=== PATIENT | male | born 1955 ===

== ENCOUNTER 2016-12-13 17:07 | Inpatient (IN) | payer BC ==
--- NOTE | ~2016-12-13 | HP ---
History And Physical [address] [place]. [address] NAME: DAVID MÉNDEZ : 59 STATUS : ADM IN [facility]#: [id number] AGE: 61 ADM/REG DATE : 12/13/16 MR#: [id number] REPORT SERV DATE: 12/13/16 DICTATED BY: KUN DOWD DATE: 12/13/16 REPORT STATUS : Draft TRANSCRIBED BY: MODL DATE: 12/13/16 DATE OF ADMISSION: 12/13/2016 CHIEF COMPLAINT: Shortness of breath and chest pain. BRIEF HISTORY OF PRESENT ILLNESS: The patient is a 61-year-old white male, who has chronic multiple myeloma, under the care of Dr. Wellington Mcgee, presented at [facility] emergency room with chest pain, shortness of breath, generalized aching, had a temperature of 100+. He was noted also to have some palpitations, wheezing, lower extremity edema, complaint of left leg pain, got bitten by a dog about two days ago on the right side, but that leg has been okay. He also had some body aches. He denied any weight loss. He denied any hemoptysis. He has had some night sweats as well. He also noted some chills. He was thought to be septic because of the chemotherapy, so he has been referred to the Hospitalist Service for further treatment and evaluation. When I got to the patient after he got transferred, this patient denied any nausea or vomiting. He just complained of his chest pain, his shortness of breath. However, he is saturating 100% on 2 L of O2. His main other complaint was his left lower extremity significant pain, burning, and there was some swelling. He denied any other problems or complaints. He is a very poor historian. REVIEW OF SYSTEMS: Rest of the 10-point review of systems was negative. PAST MEDICAL HISTORY: Significant for multiple myeloma, hypertension, history of congestive heart failure; coronary artery disease, status post aortic valve repair. He also has COPD. PAST SURGICAL HISTORY: Significant for aortic valve replacement, open heart surgery, and decortication of the lung postoperatively. ALLERGIES: NO KNOWN DRUG ALLERGIES. HOME MEDICATIONS: Unavailable at this time. It will be reviewed when available from Pharmacy. SOCIAL HISTORY: The patient lives at home. Self-sufficient in most ADLs. He admits to smoking two packs per day for 30+ years. Admits to drinking six beers every day since he was a child. Denies any illicit substances. FAMILY HISTORY: Significant for diabetes. No heart disease or cancer in the family. PHYSICAL EXAMINATION: GENERAL: White male, lying on the bed, appears to be in [id number]-hcmahmze respiratory distress. He is awake and alert. He is oriented. Once again, very poor historian. VITAL SIGNS: Blood pressure 174/80, temp of 99.8, heart rate 84, respiratory rate about 20. HEENT: Head is normocephalic, atraumatic. Pupils are equal, round, and reactive to light. Extraocular muscles are intact. Sclerae are anicteric. Conjunctivae normal. Oropharynx without lesion. Tongue protrusion midline. Uvula midline. History And Physical [address] [place]. [address] NAME: DAVID MÉNDEZ : 59 STATUS : ADM IN [facility]#: [id number] AGE: 61 ADM/REG DATE : 12/13/16 MR#: [id number] REPORT SERV DATE: 12/13/16 DICTATED BY: KUN DOWD DATE: 12/13/16 REPORT STATUS : Draft TRANSCRIBED BY: EDI DATE: 12/13/16 NECK: Supple. No jugular venous distention. No carotid bruits or thyromegaly is appreciated. No lymphadenopathy in the neck is palpable. HEART: Regular rate rhythm. No murmurs, rubs, or gallops are heard. Occasional PVC. PMI nondisplaced. LUNGS: Diffuse bilateral inspiratory and expiratory wheezing. No evidence of any focal consolidation. No rales or crackles are noted. There are few rhonchi that are scattered in all lung garrido. ABDOMEN: Scaphoid, soft, nontender. Good bowel sounds. No rebound or guarding. No organomegaly. EXTREMITIES: Without cyanosis or clubbing. The left lower extremity is swollen around the ankles, very hot to touch, eliciting pain. There is no pain on flexion and Homans sign is negative. Femoral pulses are equal and symmetrical. NEUROLOGIC: Seems to be grossly intact. LABORATORY DATA: X-ray of the of the left ankle, left ankle soft tissue swelling with a small effusion, but otherwise unremarkable. PT/INR normal. Lactate level of 2.4. Troponin of 0.01. Repeat lactic acid level of 1.2. White count is 11.2, hemoglobin of 11.5, hematocrit of 35, platelet count is 224,000. No left shift. Sodium of 123, potassium of 3.9, chloride is 88, bicarb is 23, glucose of 88, BUN of 12, creatinine 1.1. Liver function studies are all normal. Albumin of 3.2. Magnesium is 1.9. Chest x-ray, no acute process. EKG, sinus tachycardia, no acute ST-T wave changes. IMPRESSION: 1. Sepsis, present on admission. 2. Left lower extremity cellulitis. 3. Acute exacerbation of chronic obstructive pulmonary disease. 4. Acute hypoxic respiratory failure. 5. Multiple myeloma. 6. Coronary artery disease. 7. Hypertension. 8. Aortic valve replacement. 9. Alcoholism. PLAN: The patient will be admitted. IV fluids will be given. IV steroids will be started. IV antibiotics will be given, especially, Ancef, as I think this may be a Staph or a Strep infection, and we will monitor his blood and we will evaluate for other sources of infection. We will start the patient on thiamine, folate, and Ativan. We will give him aggressive nebulizing treatments. Repeat labs again in the morning. We will obtain blood cultures from [facility] as he has already gotten blood cultures done there and received Zosyn and vancomycin. This patient remains a full code at this time. History And Physical [address] [address] NAME: DAVID MÉNDEZ : 59 STATUS : ADM IN [facility]#: [id number] AGE: 61 ADM/REG DATE : 12/13/16 MR#: [id number] REPORT SERV DATE: 12/13/16 DICTATED BY: KUN DOWD DATE: 12/13/16 REPORT STATUS : Draft TRANSCRIBED BY: MODKosta DATE: 12/13/16 ANTHONY/EDI Kun Dowd M.D. / [id number] CC: Kun Nile, Jeff Barnes M.D.
--- NOTE | ~2016-12-13 | DS ---
Discharge Summary [address] [facility] [place]. [address] NAME: DAVID MÉNDEZ : 59 STATUS : DIS IN PAT#: [id number] AGE: 61 ADM/REG DATE : 12/13/16 MR#: [id number] REPORT SERV DATE: 12/18/16 DICTATED BY: GLORIA PITTMAN DATE: 12/17/16 REPORT STATUS : Draft TRANSCRIBED BY: MODL DATE: 12/17/16 ADMISSION DATE: 12/13/2016 DISCHARGE DATE: 12/17/2016 REASON FOR ADMISSION: Shortness of breath. HISTORY OF PRESENT ILLNESS: Please refer to Dr. Dowd's history and physical dated 12/13/2016 for complete details regarding the patient's admission. In brief, the patient was admitted to the Hospitalist Service for management of his acute on chronic COPD exacerbation, hypoxic respiratory failure, and sepsis secondary to lower extremity cellulitis. HOSPITAL COURSE: The patient had an uncomplicated hospital course. Dr. Dowd started the patient on steroids, nebulizers, and inhalers for COPD exacerbation along with IV Ancef for treatment of his sepsis secondary to cellulitis. Cellulitis had significantly improved. He has had about four to five days worth of IV antibiotics and has mostly resolved. Dr. Dowd had ordered a MRI of his foot, which was done on 12/13/2016, but dictation got delayed until 12/15/2016, which showed a nondisplaced acute fracture of the anterior medial talus extending to the talonavicular joint with associated small talonavicular joint effusion. There is a partial tear of the posterior tibialis tendon and its navicular insertion site. There is a mild sprain of the posterior tibiotalar fibers of the deltoid ligament. There was some moderate cellulitis, soft tissue swelling. Given these findings, Dr. Aguirre was consulted and recommended doing weightbearing at all times with the use of a boot. A boot was ordered and has now been delivered. The patient's oxygenation continued to go up and down. He does have good air movement on lung exam with some bibasilar crackles. He was given some Lasix IV, which has helped, but he is still mildly hypoxic especially with exertion. He does qualify for home oxygen. He does carry a diagnosis of COPD. In fact, he was treated for an acute on chronic COPD exacerbation, which is now resolving. We will obtain an echocardiogram today, but otherwise, the patient is requesting to go home today, so he will be discharged to home in stable condition to follow up with Dr. Mcgee in clinic tomorrow for resumption of chemotherapy. DISCHARGE DIAGNOSES: Sepsis secondary to left lower extremity cellulitis, markedly improved; acute on chronic chronic obstructive pulmonary disease exacerbation, resolving; acute hypoxic respiratory failure, likely secondary to chronic obstructive pulmonary disease, stable; multiple myeloma, followed by Dr. Mcgee; coronary artery disease; hypertension; aortic valve replacement; history of alcoholism; and acute talar fracture. PROCEDURES: Include echocardiogram, MRI, and consultation with Dr. Aguirre. DISCHARGE MEDICATIONS: Include acyclovir 400 mg twice a day for maintenance therapy; amlodipine 10 mg daily; Lasix 20 mg daily; metoprolol tartrate 25 mg twice a day; Protonix 40 mg daily; Decadron 20 mg on the day before chemotherapy; Flonase daily; [place] 10/325 mg p.r.n., #20 given; Phenergan p.r.n. nausea; Lyrica 100 mg twice a day p.r.n. pain; Zofran p.r.n. nausea; Bactrim one tablet once a day on Saturday for maintenance therapy; Ceftin 500 mg twice a day for three more days; and Dulera two puffs twice a day. Discharge Summary [address] [address] NAME: DAVID MÉNDEZ : 59 STATUS : DIS IN PAT#: [id number] AGE: 61 ADM/REG DATE : 12/13/16 MR#: [id number] REPORT SERV DATE: 12/18/16 DICTATED BY: GLORIA PITTMAN DATE: 12/17/16 REPORT STATUS : Draft TRANSCRIBED BY: EDI DATE: 12/17/16 Spending over 30 minutes discharge planning. DICTATED BY: MD LISSETTE Jaime/EDI Gloria Pittman MD / [id number] CC: Gloria A. MD Patricia Pittman M.D. Wellington Mcgee M.D.
--- NOTE | ~2016-12-13 | CN ---
Consultation Report [facility] [address] [place]. [address] NAME: DAVID MÉNDEZ : 59 STATUS : ADM IN PAT#: [id number] AGE: 61 ADM/REG DATE : 12/13/16 MR#: [id number] REPORT SERV DATE: 12/16/16 DICTATED BY: FRANCISCO LINCOLN DATE: 12/16/16 REPORT STATUS : Draft TRANSCRIBED BY: MODL DATE: 12/16/16 CONSULTATION DATE OF CONSULTATION: 12/16/2016 CHIEF COMPLAINT: Left leg pain. HISTORY OF PRESENT ILLNESS: The patient is a 61-year-old gentleman who has history of multiple myeloma, who has been treated by the Hem-Onc team currently under the care of Dr. Mcgee. He came to the emergency room with temperature, shortness of breath. He was transferred to [facility] for possibility of sepsis with a left lower extremity pain. He was thought to have cellulitis in left lower extremity and started on antibiotics on admission. He is a very poor historian. He does not remember any kind of injury to the leg. He can tell me very little about his nature of the pain and history of the pain. He says the pain is mostly on the medial side of his foot and he has really no pain at rest today, but he has some pain with palpation of the leg. PAST MEDICAL HISTORY: Multiple myeloma, hypertension, congestive heart failure, coronary artery disease, COPD. PAST SURGICAL HISTORY: Including an aortic valve repair, open heart surgery. ALLERGIES: NO KNOWN DRUG ALLERGIES. MEDICATIONS: Decadron, Pepcid, Flonase, Miller, Lopressor, Zofran, Percocet, Protonix, Lyrica, Phenergan, Bactrim, Lasix, Prilosec. He also gets chemotherapy, administered by Oncology. SOCIAL HISTORY: Lives at home. Smokes two packs, 30 years. Drinks six beers every day. FAMILY HISTORY: Noncontributory. PHYSICAL EXAMINATION: GENERAL: Well-developed, well-nourished male, appears chronically ill, in no acute distress. HEENT: Normocephalic, atraumatic. RESPIRATORY: Nonlabored respirations. Equal chest rise bilaterally. EXTREMITIES: He has erythema on both extremities, worse on the left, above his ankle and minimal swelling. MUSCULOSKELETAL: Tenderness to palpation around his medial ankle specifically over the medial talus, medial malleolus, and lateral malleolus. He has some mild pain with range of motion. Erythema around the foot and also above the ankle and mid lower leg. SKIN: Erythema, no lacerations or lesions, left lower extremity. PSYCH: Appropriate mood and affect. Consultation Report [address] [place]. [address] NAME: DAVID MÉNDEZ : 59 STATUS : ADM IN [facility]#: [id number] AGE: 61 ADM/REG DATE : 12/13/16 MR#: [id number] REPORT SERV DATE: 12/16/16 DICTATED BY: FRANCISCO LINCOLN DATE: 12/16/16 REPORT STATUS : Draft TRANSCRIBED BY: EDI DATE: 12/16/16 NEURO: Alert and oriented. DIAGNOSTIC DATA: X-rays, none. MRI shows a sprain of his posterior tibial tendon as well as posterior deltoid fibers. He had nondisplaced fracture that appeared to be anterior medial talus, very small fracture, no displacement, small joint effusion. He has no fluid collections noted. swelling around the ankle and foot. Also, lateral bone bruise on his lateral malleolus, lateral surface. ASSESSMENT: Acute fracture, small fracture, medial talus, nondisplaced, cellulitis. PLAN: We will continue with antibiotics per the Primary Team. We will give him a boot, have Physical Therapy work with him now for partial touchdown weightbearing. Follow him up in two to three weeks. No acute surgery needed. ROSE MARY/EDI Francisco Lincoln MD / [id number] CC: MD Patricia Jaime M.D.
[2016-12-13] MEDS ORDERED: ZOFRAN ODT4 MG PO (17:20)
[2016-12-13] MEDS ORDERED: FLONASE NAS ×2 (17:21→20:16)
[2016-12-13] MEDS ORDERED: LOP25 PO ×2 (17:21→20:17)
[2016-12-13] MEDS ORDERED: PEP20 PO ×2 (17:21→20:16)
[2016-12-13] MEDS ORDERED: L20 PO ×2 (17:22→20:26)
[2016-12-13] MEDS ORDERED: NORCO1 TA1 PO (17:23)
[2016-12-13] MEDS ORDERED: PROTONIX PO ×2 (17:24→20:19)
[2016-12-13] MEDS ORDERED: LYRICA50 PO (17:24)
[2016-12-13] MEDS ORDERED: ZOVIRAX400 MG PO ×2 (17:25→20:14)
[2016-12-13] MEDS ORDERED: BACTRIM DS1 TAB PO ×2 (17:26→20:23)
[2016-12-13] MEDS ORDERED: DEX4 PO ×2 (17:27→20:15)
[2016-12-13] MEDS ORDERED: PR25 PO ×2 (17:33→20:22)
[2016-12-13] MEDS ORDERED: POMALYST4 MG PO (17:39)
[2016-12-13 19:05] LABS: PHOSPHORUS, SERUM 3.5 MG/DL (2.5-4.5)
[2016-12-13 19:33] LABS: PROCALCITONIN 1.22 ng/mL (<0.5)
[2016-12-13] MEDS ORDERED: NORCO1 TAB PO (20:17)
[2016-12-13] MEDS ORDERED: PERCOCET 10/3251 TAB PO (20:18)
[2016-12-13] MEDS ORDERED: ZOFRAN8 PO (20:18)
[2016-12-13] MEDS ORDERED: LYRICA100 MG PO (20:21)
[2016-12-13] MEDS ORDERED: CHEMOTHERAPY IV (20:24)
[2016-12-13] MEDS ORDERED: PRILO PO (20:25)
[2016-12-14 06:01] LABS: BASOPHILS 0 %; EOSINOPHILS 0 %; HEMATOCRIT 32.3 % (40.0-51.0); HEMOGLOBIN 10.5 g/dL (13.6-17.8); IMMATURE GRANULOCYTES 0.2 %; IMMATURE GRANULOCYTES ABSOLUTE 0.03 10/3/uL (0.0-0.11); LYMPHOCYTES ABSOLUTE 0.14 10/3/uL (0.67-4.30); MEAN CORPUS HGB CONC 32.5 g/dL (32.0-36.0); MEAN CORPUSCULAR HEMOGLOB 27.3 pg (26.0-34.0); MEAN CORPUSCULAR VOLUME 84.1 fL (80-100); MEAN PLATELET VOLUME 9.7 fL (9.2-13.0); MONOCYTES 2.9 %; MONOCYTES ABSOLUTE 0.39 10/3/uL (0.21-1.20); NEUTROPHILS 95.9 %; NEUTROPHILS ABSOLUTE 12.84 10/3/uL (2.02-8.40); PLATELET COUNT 207 10/3/uL (150-400); RBC DISTRIBUTION WIDTH 17.9 % (12.0-16.0); RED CELL COUNT 3.84 10/6/uL (4.7-6.1); WHITE BLOOD CELLS 13.4 10/3/uL (4.5-10.5)
[2016-12-14 06:06] LABS: MANUAL DIFF NO %
[2016-12-14 06:14] LABS: ALBUMIN 2.2 G/DL (3.5-5.0); BUN (BLOOD UREA NITROGEN) 8 MG/DL (6-23); CALCIUM, SERUM 7.9 MG/DL (8.5-10.4); CHLORIDE, SERUM 96 MMOL/L (96-112); CO2 (CARBON DIOXIDE) 23 MMOL/L (24-34); CREATININE 0.95 MG/DL (0.70-1.30); GFR AFRICAN AMERICAN 101 ML/MIN (>=60); GFR NON AFRICAN AMERICAN 87 ML/MIN (>=60); GLUCOSE, SERUM 164 MG/DL (60-99); PHOSPHORUS, SERUM 2.9 MG/DL (2.5-4.5); POTASSIUM, SERUM 3.2 MMOL/L (3.5-5.3); SODIUM, SERUM 128 MMOL/L (135-148)
[2016-12-15 06:14] LABS: BASOPHILS 0.1 %; BASOPHILS ABSOLUTE 0.02 10/3/uL (0.0-0.16); EOSINOPHILS 0 %; IMMATURE GRANULOCYTES 0.8 %; IMMATURE GRANULOCYTES ABSOLUTE 0.13 10/3/uL (0.0-0.11); LYMPHOCYTES 2.2 %; LYMPHOCYTES ABSOLUTE 0.35 10/3/uL (0.67-4.30); MEAN CORPUS HGB CONC 31.3 g/dL (32.0-36.0); MEAN CORPUSCULAR HEMOGLOB 27.7 pg (26.0-34.0); MEAN PLATELET VOLUME 10.5 fL (9.2-13.0); MONOCYTES 1.2 %; MONOCYTES ABSOLUTE 0.19 10/3/uL (0.21-1.20); NEUTROPHILS 95.7 %; NEUTROPHILS ABSOLUTE 15.51 10/3/uL (2.02-8.40); PLATELET COUNT 174 10/3/uL (150-400); RBC DISTRIBUTION WIDTH 18.5 % (12.0-16.0); RED CELL COUNT 3.61 10/6/uL (4.7-6.1); WHITE BLOOD CELLS 16.2 10/3/uL (4.5-10.5)
[2016-12-15 06:15] LABS: ALBUMIN 2.1 G/DL (3.5-5.0); BUN (BLOOD UREA NITROGEN) 11 MG/DL (6-23); CALCIUM, SERUM 8.3 MG/DL (8.5-10.4); CHLORIDE, SERUM 97 MMOL/L (96-112); CO2 (CARBON DIOXIDE) 20 MMOL/L (24-34); GFR AFRICAN AMERICAN 108 ML/MIN (>=60); GFR NON AFRICAN AMERICAN 93 ML/MIN (>=60); GLUCOSE, SERUM 139 MG/DL (60-99); PHOSPHORUS, SERUM 2.7 MG/DL (2.5-4.5); SODIUM, SERUM 127 MMOL/L (135-148)
[2016-12-15 06:17] LABS: POTASSIUM, SERUM 3.9 MMOL/L (3.5-5.3)
[2016-12-15 06:57] LABS: ANISOCYTOSIS 1+ (5-10/OIF) (0-5/OIF); MANUAL DIFF NO %; MEAN CORPUSCULAR VOLUME 88.6 fL (80-100); PLATELET ESTIMATE ADQ (ADEQUATE)
[2016-12-16 05:38] LABS: BASOPHILS 0 %; EOSINOPHILS 0 %; HEMOGLOBIN 9.1 g/dL (13.6-17.8); IMMATURE GRANULOCYTES 0.3 %; IMMATURE GRANULOCYTES ABSOLUTE 0.04 10/3/uL (0.0-0.11); LYMPHOCYTES 4.1 %; LYMPHOCYTES ABSOLUTE 0.58 10/3/uL (0.67-4.30); MEAN CORPUS HGB CONC 32.5 g/dL (32.0-36.0); MEAN CORPUSCULAR HEMOGLOB 27.3 pg (26.0-34.0); MEAN PLATELET VOLUME 9.9 fL (9.2-13.0); MONOCYTES 6.9 %; MONOCYTES ABSOLUTE 0.99 10/3/uL (0.21-1.20); NEUTROPHILS 88.7 %; NEUTROPHILS ABSOLUTE 12.71 10/3/uL (2.02-8.40); PLATELET COUNT 223 10/3/uL (150-400); RBC DISTRIBUTION WIDTH 17.8 % (12.0-16.0); RED CELL COUNT 3.33 10/6/uL (4.7-6.1); WHITE BLOOD CELLS 14.3 10/3/uL (4.5-10.5)
[2016-12-16 05:41] LABS: MANUAL DIFF NO %; MEAN CORPUSCULAR VOLUME 84.1 fL (80-100)
[2016-12-16 05:52] LABS: BUN (BLOOD UREA NITROGEN) 14 MG/DL (6-23); CALCIUM, SERUM 8.3 MG/DL (8.5-10.4); CHLORIDE, SERUM 91 MMOL/L (96-112); CREATININE 0.87 MG/DL (0.70-1.30); GFR AFRICAN AMERICAN 109 ML/MIN (>=60); GFR NON AFRICAN AMERICAN 94 ML/MIN (>=60); POTASSIUM, SERUM 3.3 MMOL/L (3.5-5.3); SODIUM, SERUM 130 MMOL/L (135-148)
[2016-12-16 05:57] LABS: CO2 (CARBON DIOXIDE) 31 MMOL/L (24-34); GLUCOSE, SERUM 104 MG/DL (60-99)
[2016-12-17 05:09] LABS: BASOPHILS 0 %; EOSINOPHILS 0.2 %; EOSINOPHILS ABSOLUTE 0.01 10/3/uL (0.0-0.53); HEMATOCRIT 30.1 % (40.0-51.0); HEMOGLOBIN 9.4 g/dL (13.6-17.8); IMMATURE GRANULOCYTES 0.3 %; IMMATURE GRANULOCYTES ABSOLUTE 0.02 10/3/uL (0.0-0.11); LYMPHOCYTES 9.6 %; LYMPHOCYTES ABSOLUTE 0.63 10/3/uL (0.67-4.30); MEAN CORPUS HGB CONC 31.2 g/dL (32.0-36.0); MEAN CORPUSCULAR HEMOGLOB 26.4 pg (26.0-34.0); MEAN CORPUSCULAR VOLUME 84.6 fL (80-100); MEAN PLATELET VOLUME 9.7 fL (9.2-13.0); MONOCYTES ABSOLUTE 0.85 10/3/uL (0.21-1.20); NEUTROPHILS 76.9 %; NEUTROPHILS ABSOLUTE 5.05 10/3/uL (2.02-8.40); PLATELET COUNT 235 10/3/uL (150-400); RBC DISTRIBUTION WIDTH 17.7 % (12.0-16.0); RED CELL COUNT 3.56 10/6/uL (4.7-6.1)
[2016-12-17 05:16] LABS: MANUAL DIFF NO %; WHITE BLOOD CELLS 6.6 10/3/uL (4.5-10.5)
[2016-12-17 05:20] LABS: BUN (BLOOD UREA NITROGEN) 16 MG/DL (6-23); CALCIUM, SERUM 8.6 MG/DL (8.5-10.4); CHLORIDE, SERUM 91 MMOL/L (96-112); CO2 (CARBON DIOXIDE) 35 MMOL/L (24-34); CREATININE 0.84 MG/DL (0.70-1.30); GFR AFRICAN AMERICAN 111 ML/MIN (>=60); GFR NON AFRICAN AMERICAN 96 ML/MIN (>=60); GLUCOSE, SERUM 90 MG/DL (60-99); POTASSIUM, SERUM 3.4 MMOL/L (3.5-5.3); SODIUM, SERUM 131 MMOL/L (135-148)
[2016-12-17] MEDS ORDERED: NORV10 PO (14:44)
[2016-12-17] MEDS ORDERED: CEFT5 (15:12)
[2016-12-17] MEDS ORDERED: DULERA 100 MCG/13 GM INH (15:13)
== END 2016-12-17 16:46 | disposition home or self-care (01) | DRG 871 ==
LOC: 2SO 17:07
PROVIDERS: Internal Medicine
DX: A41.9 Sepsis, unspecified organism (principal); J96.01 Acute respiratory failure with hypoxia; E87.2 Acidosis; C90.00 Multiple myeloma not having achieved remission; D64.9 Anemia, unspecified; S82.55XA Nondisplaced fracture of medial malleolus of left tibia, initial encounter for closed fracture; L03.116 Cellulitis of left lower limb; J44.1 Chronic obstructive pulmonary disease with (acute) exacerbation; E87.1 Hypo-osmolality and hyponatremia; I25.10 Atherosclerotic heart disease of native coronary artery without angina pectoris; I10 Essential (primary) hypertension; F10.20 Alcohol dependence, uncomplicated; I50.9 Heart failure, unspecified; F17.210 Nicotine dependence, cigarettes, uncomplicated; X58.XXXA Exposure to other specified factors, initial encounter; Z95.2 Presence of prosthetic heart valve
CPT/HCPCS: 71020; 73721-LT; 80048; 80069; 83605; 83735; 84100; 84145; 85025; 93005; 93306; 93970; 94640; 97162-GP; 97164-GP; A9270-GY; G8978-CK-GP; G8979-CJ-GP; J0690; J1170; J2930; J3411